=== PATIENT | male | born 1945 | race Caucasian/White ===

== ENCOUNTER 2017-10-07 18:41 | Observation (INO) | payer OTHER ==
[~2017-10-07] VITALS: Ht 180.3 cm; Wt 90.8 kg
[2017-10-07 18:48] VITALS: Ht 180.3 cm; Wt 90.8 kg
[2017-10-07 19:24] LABS: BASOPHIL % 0.2 % (0-2); PLATELET COUNT 251 x10^3mcL (130-400); RED CELL DISTRIBUTION WIDTH 13.4 % (11.5-14.5)
[2017-10-07 19:39] LABS: CALCIUM 9.7 mg/dL (8.5-10.1); CARBON DIOXIDE 31.2 mmol/L (21-32); CHLORIDE SERUM 104 mmol/L (98-107); CREATININE SERUM 1.7 mg/dL (0.7-1.3); GLUCOSE SERUM 120 mg/dL (74-106); POTASSIUM SERUM 3.3 mmol/L (3.5-5.1); SODIUM SERUM 139 mmol/L (136-145)
[2017-10-07 19:45] LABS: ALKALINE PHOSPHATASE 79 U/L (46-116); ALT/SGPT 36 U/L (16-63); AST/SGOT 31 U/L (15-37); BILIRUBIN TOTAL 0.89 mg/dL (0.20-1.00); LIPASE 188 IU/L (73-393); TRIGLYCERIDES 154 mg/dL (<150)
[2017-10-07 19:46] LABS: CHOLESTEROL 134 mg/dL (<200); CHOLESTEROL/HDL RATIO 2.2; HDL CHOLESTEROL 62 mg/dL (40-60)
[2017-10-07 19:53] LABS: T3 TOTAL 1.06 ng/mL
[2017-10-07 20:10] LABS: FREE T4 0.81 ng/dL (0.76-1.46); FREE THYROXINE INDEX 2.4 ug/dL (1.4-4.5); T4(THYROXINE) 7.5 ug/dL (4.7-13.3)
[2017-10-07] MEDS ORDERED: LOSARTAN POTAS100 M1 PO (20:25)
[2017-10-07] MEDS ORDERED: PROSCAR5 MG PO (20:25)
[2017-10-07] MEDS ORDERED: ATENOLOL50 MG PO (20:25)
[2017-10-07] MEDS ORDERED: LIPITOR40 MG PO (20:25)
[2017-10-07 21:21] VITALS: BP 137/72
[2017-10-08 02:23] LABS: microscopic required? NO
[2017-10-08 02:38] LABS: urine erythrocyte NEGATIVE (NEGATIVE)
[2017-10-08 05:32] VITALS: BP 149/81
[2017-10-08 06:21] LABS: CALCIUM 8.6 mg/dL (8.5-10.1); CARBON DIOXIDE 26.9 mmol/L (21-32); CHLORIDE SERUM 109 mmol/L (98-107); CREATININE SERUM 1.4 mg/dL (0.7-1.3); GLUCOSE SERUM 78 mg/dL (74-106); MAGNESIUM 2.2 mg/dL (1.8-2.4); POTASSIUM SERUM 3.9 mmol/L (3.5-5.1); SODIUM SERUM 144 mmol/L (136-145)
[2017-10-08 06:35] LABS: BASOPHIL % 0.4 % (0-2); PLATELET COUNT 204 x10^3mcL (130-400); RED CELL DISTRIBUTION WIDTH 13.6 % (11.5-14.5)
[2017-10-08 09:00] VITALS: BP 143/68
[2017-10-08] MEDS ORDERED: METOPROLOL TART25 M1 PO (10:10)
[2017-10-08 11:21] VITALS: BP 143/68
== END 2017-10-08 12:57 | disposition home or self-care (01) | DRG 310 ==
LOC: ED 18:41 → DU 20:25
PROVIDERS: Internal Medicine Pulmonary Disease; Specialist
DX: I48.91 Unspecified atrial fibrillation (principal); I10 Essential (primary) hypertension; E87.6 Hypokalemia; E78.5 Hyperlipidemia, unspecified; N40.0 Benign prostatic hyperplasia without lower urinary tract symptoms; E66.9 Obesity, unspecified; Z68.28 Body mass index [BMI] 28.0-28.9, adult; Z87.891 Personal history of nicotine dependence
CPT/HCPCS: 83880; 84439; G0378; J1644; J3490; J7030; Q0092

== ENCOUNTER 2018-04-15 00:05 | Inpatient (IN) | payer OTHER ==
[~2018-04-15] VITALS: Ht 177.8 cm; Wt 95.3 kg
[2018-04-15] VITALS (9 sets, daily range): BP systolic 114–174; BP diastolic 68–151
[~2018-04-15 00:05] MED LIST: ATENOLOL50 MG PO; LIPITOR40 MG PO; LOSARTAN POTAS100 M1 PO; METOPROLOL TART25 M1 PO; PROSCAR5 MG PO
--- NOTE | 2018-04-15 00:26 | NUR ---
CXR TAKEN AT BEDSIDE.
--- NOTE | 2018-04-15 00:28 | NUR ---
RT AT BEDSIDE TO OBTAIN ABG. PT INSTRUCTED TO PROVIDE URINE SPECIMEN VIA URINAL, PLACED AT BEDSIDE FOR CONVENIENCE.
[2018-04-15 00:36] LABS: PLATELET COUNT 338 x10^3mcL (130-400); RED CELL DISTRIBUTION WIDTH 14.4 % (11.5-14.5)
--- NOTE | 2018-04-15 00:43 | NUR ---
PT CAME TO THE ED TODAY WITH C/O SOB X 1 DAY. PT OXYGEN SATURATION ON 2L HOME O2 WAS 51%.
[2018-04-15 00:45] LABS: BAND NEUTROPHIL 0 % (0-10); MONOCYTE 5 % (0-7); SEGMENTED NEUTROPHILS 90 % (37-75)
[2018-04-15 00:46] LABS: rbc morphology (normal/abnorm) NORMAL (NORMAL)
[2018-04-15 00:51] LABS: CALCIUM 7.8 mg/dL (8.5-10.1); CARBON DIOXIDE 21.2 mmol/L (21-32); CHLORIDE SERUM 102 mmol/L (98-107); CREATININE SERUM 1.6 mg/dL (0.7-1.3); GLUCOSE SERUM 242 mg/dL (74-106); POTASSIUM SERUM 4.3 mmol/L (3.5-5.1); SODIUM SERUM 138 mmol/L (136-145)
[2018-04-15 00:56] LABS: ALKALINE PHOSPHATASE 97 U/L (46-116); ALT/SGPT 85 U/L (16-63); AST/SGOT 47 U/L (15-37); BILIRUBIN TOTAL 1.2 mg/dL (0.20-1.00); TOTAL PROTEIN, SERUM 6.5 g/dL (6.4-8.2)
[2018-04-15 01:00] LABS: ALBUMIN 2.7 g/dL (3.4-5.0)
[2018-04-15 01:08] LABS: CK-MB 1.7 ng/mL (0-3.6)
--- NOTE | 2018-04-15 02:57 | NUR ---
PATIENT IS A 72 YEAR OLD MALE ADMITTED DUE TO COMPLAIN OF SHORTHNESS OF BREATH FROM ER VIA [facility]. PATIENT IS AWAKE, ALERT, ORIENTED X4. PAKISTANI SPEAKING ONLY. TACHYPNEIC, ON NONREBREATHER MASK AT 15L, LATEST O2 SAT 91%. ABDOMEN ROUND/SOFT/NONTENDER, LBM 04/14/18. VOIDING FREELY WITHOUT DIFFICULTY. NO EDEMA. SKIN DRY AND INTACT. GENERALIZED WEAKNESS TO EXTREMITIES. USE WALKER/CANE AT HOME. NEEDS ASSIST WITH ADL'S. PER DAUGHTER HE KEEPS ON FALLING AT HOME. DENIES PAIN. IV SITE TO LEFT HAND PATENT AND INTACT WITH ONGOING 0.9% NS AT 150 CC/HR AND ZITHROMAX IV. ON TELE #8. WILL CONTINUE TO MONITOR.
--- NOTE | 2018-04-15 05:00 | NUR ---
PATIENT DESATURATING ON OXYMIZER AT 15L. O2 SAT 86-89%, RR 30-40'S. RT RECOMMENDS PLACING PATIENT ON HI FLOW O2.
--- NOTE | 2018-04-15 05:20 | NUR ---
DR PACHECO UPDATED ON PATIENTS CONDITION. RECEIVED ORDERS TO PLACED PATIENT ON HI FLOW O2 AND TRANSFER TO ICU. WILL CARRY OUT ORDERS.
--- NOTE | 2018-04-15 05:40 | NUR ---
PATIENT TRANSFERRED TO ICU VIA BED ON MONITOR AND O2. REPORT GIVEN TO HEBERT CONTINUOUS MINING MACHINE LODE MINER.
--- NOTE | 2018-04-15 05:45 | NUR ---
RECEIVED PATIENT FROM 252B TO ICU3 ACCOMPANIED BY 2 RNS WITH O2 VIA NASAL CANNULA, O2 SAT 78%, PATIENT IS ALERT AND ORIENTED, PASHTO SPEAKING WITH IV ACCESS ON THE LEFT HAND GAUGE 2O PATENT AND INTACT. IVF NS FIRST BOTTLE OF THE 150 ML/HR RATE IN FUSING. HR IN THE LOW 130'S SINUS TACH. PATIENT ORIENTED TO FLOOR, SAFETY MEASURES IMPLEMENTED. DR. MORAN AT BEDSIDE ASSESSING PATIENT. PATIENT IS COMFORTABLE, DENIES ANY DISCOMFORT.
--- NOTE | 2018-04-15 06:40 | NUR ---
DR. PACHECO INFORMED OF AFIB RATE IN THE HI 130'S, WITH ORDER TO GIVE CARDIZEM 10 MG IVP Q4 HOURS PRN. PATIENT'S O2 SAT IN THE HIGH 80'S RT TO TITRATE FIO2,
--- NOTE | 2018-04-15 07:15 | NUR ---
REPORT GIVEN TO THE NEXT SHIFT, PATIENT WAS GIVEN CARDIZEM 10 MG IVP AND FIO2 TITRATED TO 50 LITERS, SATURATION AT 88%. HR IS DOWN TO 105 FROM THE HIGH 130'S, AFTER CARDIZEM 10 MG.
--- NOTE | 2018-04-15 07:38 | NUR ---
CONVERTED TO NSR AT THIS TIME.
--- NOTE | 2018-04-15 07:40 | NUR ---
REVERTED TO AFIB
--- NOTE | 2018-04-15 07:45 | NUR ---
RECIEVED REPORT FROM HEBERT PUTNAM. PT IS NOT TRACH'D. PT AWAKE, ALERT, AND ORTIENTED TO PERSON/PLACE/TIME. ABLE TO FOLLOW COMMANDS AND RESPOND TO QUESTIONS. WOLOF SPEAKING BUT CAN COMPREHEND [place]. PT IS ON HIFLO O2 50%. PT IN NO SIGNS OF RESPIRATORY DISTRESS. PT'S BREATHING IS UNLABORED WITH SYMMETRICAL CHEST WALL EXPANSION. PT IS PINK IN COLOR AND WARM TO TOUCH. HEART RHYTHM = AFIB, HR = 118 BPM. S1 S2 HEART SOUNDS AUDIBLE. CAP REFILL <3 SECONDS TO BUE, <3 SECONDS TO BLE. PULSES ARE PALPABLE AND MODERATE IN INTENSITY TO BOTH BUE AND BLE. PERIPHERAL IV TO LEFT ARM, NS INFUSING AT 150 MLS/HR. ABDOMEN IS SOFT AND ROUNDED. NO F/C IN PLACE. SKIN INTACT. NO WOUNDS NOTED. PT'S VITALS: 118 BPM, 22 RR, 96% O2, 162/84 (109) BP. PT IS COOPERATIVE. SPOUSE AT BEDSIDE AT THIS TIME. FALL PRECAUTIONS IN PLACE. CALL LIGHT WITHIN REACH.
--- NOTE | 2018-04-15 09:39 | NUR ---
ECHO BEING DONE AT BEDSIDE.
--- NOTE | 2018-04-15 10:25 | NUR ---
PT O2 DESAT TO 65% AFTER ECHO. RT CONTACTED AND NOW AT BEDSIDE. CHANGED HIFLO TO 90%. O2 SATURATION NOW AT 90%. WILL CONTINUE TO MONITOR.
--- NOTE | 2018-04-15 12:14 | NUR ---
PT TRIED TO USE THE URINAL, O2 DESAT TO 60%. POSITIONED THE PT TO HOB >30 DEGREES. CALLED RT TO ASSESS AND IS NOW AT BEDSIDE. GIVEN BREATHING TREATMENT AT THIS TIME. PT O2 SAT IS NOW 93%, BREATHING BETTER, WITH NO DISTRESS NOTED. WILL CONTINUE TO MONITOR.
--- NOTE | 2018-04-15 14:04 | NUR ---
DR. HARVEY AT BEDSIDE. EXPLAINED POC WITH PT AND FAMILY AT BEDSIDE. WILL CARRY OUT 'S ORDERS ONCE PLACED.
--- NOTE | 2018-04-15 15:26 | NUR ---
CARDIZEM DRIP INITIATED @ 5 MG/HR. PT REMAINS IN AFIB AT THIS TIME, HR 127.
--- NOTE | 2018-04-15 15:45 | NUR ---
HR = 120. TITRATED CARDIZEM FROM 5 MG/HR TO 10 MG/HR. WILL CONTINUE TO MONITOR.
--- NOTE | 2018-04-15 16:27 | NUR ---
HR = 107. TITRATED CARDIZEM FROM 10 MG/HR TO 15 MG/HR. WILL CONTINUE TO MONITOR.
--- NOTE | 2018-04-15 19:30 | NUR ---
REC'D REPORT FROM RODRICK PUTNAM TO ASSUME CARE. PT IS A/O X4, SPEECH CLEAR AND APPROPRIATE. PERRLA NOTED. NO ACUTE DISTRESS NOTED. NO SOB NOTED RESPS E/U ON HI-FLOW FIO2 86%. CHEST RISE EQUAL AND SYMMETRICAL. LUNG SOUNDS COARSE CRACKLES/WHEEZES BERNARD. TELE RN IN PLACE SHOWING AFIB WITH HR 86. CARDIZEM GTT INFUSING @ 15 MG/HR. ABD SOFT, ROUNDED, NON-TENDER TO TOUCH. DENIES ANY N/V/D. VOIDS FREELY WITH URINAL. DENIES ANY URINARY SYMPTOMS. SKIN WARM DRY TO TOUCH. IV TO LEFT HAND G 20 INTACT AND PATENT. NS INFUSING @ 40ML/HR. PULSES PALPABLE X4. NO EDEMA NOTED. CAP REFILL < 3 SECS. GEN WEAKNESS NOTED. ABLE TO MOVE ALL EXT. INSTRUCTED TO CALL FOR ANY ASSISTANCE. CALL LIGHT WITHIN REACH. WILL CONT TO MONITOR.
--- NOTE | 2018-04-15 20:03 | NUR ---
RT PAZ AT BEDSIDE PROVIDING BREATHING TX.
--- NOTE | 2018-04-15 20:42 | NUR ---
TITRATED FIO2 VIA HI-FLOW HUMIDIFIER TO 80%. SPO2 97%. RN NOTIFIED. NO RESPIRATORY DISTRESS AT THIS TIME. WILL MONITOR.
--- NOTE | 2018-04-15 20:43 | NUR ---
RT BRANDI TITRATED FIO2 TO 80%.
--- NOTE | 2018-04-15 22:18 | NUR ---
CALLED AND SPOKE TO DR MORAN, UPDATED ON PTS STATUS, MADE AWARE REGARDING PT WITH NO AM LABS ORDERED. TELEPHONE ORDER GIVEN FOR CBC, CMP, BNP, AND CXRAY IN AM. TELEPHONE ORDER READ BACK. ORDER NOTED AND CARRIED OUT.
--- NOTE | 2018-04-15 23:24 | NUR ---
PT SLEEPING BUT EASILY AROUSABLE. ASSISTED TO REPOSITION IN BED. PTS URINAL EMPTIED, 200ML YELLOW COLORED URINE NOTED.
--- NOTE | 2018-04-16 01:30 | NUR ---
HR REMAINS BETWEEN 70-80, CARDIZEM GTT TITRATED DOWN TO 10MG/HR.
--- NOTE | 2018-04-16 02:18 | NUR ---
PT FOUND STANDING AT SIDE OF BED WITH IV, NURSING AGENCY MANAGER, PULSE OX, BP CUFF, GOWN, AND HI-FLOW REMOVED; PT DESATTED TO 56%, RESPS LABORED. INSTRUCTED TO TAKE DEEP BREATHS. HI-FLOW PLACED, O2 SAT WENT UP 96%. PT STATES "I NEED TO GO TO BATHROOM." PT ASSISTED BACK TO BED AND ASSISTED TO USE URINAL, EMPTIED 300ML. REMOVED LEFT HAND IV CATHETER INTACT, GAUZE APPLIED, BLEEDING CONTROLLED. IV INSERTED TO RIGHT HAND G 20, GOOD BLOOD RETURN NOTED. FLUSHED WITH 10CC NS WITHOUT ANY INFILTRATION NOTED. PT INSTRUCTED TO CALL FOR ANY ASSISTANCE AND NOT TO GET OUT OF BED, VERBALIZED UNDERSTANDING. PTS CURTAIN OPEN WITH ROOM CLOSE TO NURSING STATION FOR CLOSE MONITORING. CALL LIGHT WITHIN REACH.
[2018-04-16 03:01] VITALS: BP 111/63
--- NOTE | 2018-04-16 04:59 | NUR ---
CARDIZEM GTT TITRATED TO 5 MG/HR, HR 76.
[2018-04-16 05:04] LABS: PLATELET COUNT 285 x10^3mcL (130-400); RED CELL DISTRIBUTION WIDTH 14.2 % (11.5-14.5)
[2018-04-16 05:19] LABS: ALBUMIN 2.4 g/dL (3.4-5.0); ALKALINE PHOSPHATASE 76 U/L (46-116); ALT/SGPT 73 U/L (16-63); AST/SGOT 42 U/L (15-37); BILIRUBIN TOTAL 0.97 mg/dL (0.20-1.00); CARBON DIOXIDE 23.6 mmol/L (21-32); CHLORIDE SERUM 107 mmol/L (98-107); CREATININE SERUM 1.3 mg/dL (0.7-1.3); GLUCOSE SERUM 155 mg/dL (74-106); POTASSIUM SERUM 4.2 mmol/L (3.5-5.1); SODIUM SERUM 140 mmol/L (136-145); TOTAL PROTEIN, SERUM 5.8 g/dL (6.4-8.2)
[2018-04-16 05:22] LABS: BAND NEUTROPHIL 1 % (0-10); METAMYELOCTE 1 % (0-2); MONOCYTE 3 % (0-7); SEGMENTED NEUTROPHILS 90 % (37-75)
[2018-04-16 05:27] LABS: acanthocyte (spur cell) 1+; rbc morphology (normal/abnorm) ABNORMAL (NORMAL)
[2018-04-16 05:28] LABS: PLATELET MORPHOLOGY PLATELETS NORMAL
--- NOTE | 2018-04-16 07:05 | NUR ---
REPORT GIVEN TO SATISH PUTNAM TO ASSUME CARE.
[2018-04-16 07:45] VITALS: BP 115/85
--- NOTE | 2018-04-16 07:45 | NUR ---
THE PATIENT AWAKE AND ORIENTED TO PERSON, PLACE AND . THE PATIENT DENIED SHORTNESS OF BREATH, NAUSEA/VOMITING OR PAIN AT THIS TIME. TELE # 3 READS AFIB. THE PATIENT WAS ON HIGH FLOW AT 50LPM AND 80% FIO2. CARDIZEM DRIP AT 5MG/HR. AND IVF NS AT 40CC/HR VIA H/L RIGHT HAND. CALL LIGHT WITHIN REACH. SIDE RAILS UP X3. BED WAS AT LOWEST POSITION. THE WAS AT BEDSIDE.
--- NOTE | 2018-04-16 08:00 | NUR ---
DR. MORAN WAS AT BEDSIDE SEEING THE PATIENT AND DISCUSSING THE CARE PLAN WITH THE PATIENT AND HIS .
--- NOTE | 2018-04-16 08:05 | NUR ---
DR MORAN AT BEDSIDE TO ASSESS PATIENT. POC DISCUSSED BEDSIDE INCLUDING CODE STATUS. DR MORAN DISCUSSED IN DETAIL THE POSSIBILTY OF INTUBATION WITH ALL QUESTIONS AND CONCERNS ADDRESSED.
--- NOTE | 2018-04-16 09:02 | NUR ---
HR 117, CARDIZEM DRIP WAS TITRATED FROM 5MG/HR TO 10MG/HR.
--- NOTE | 2018-04-16 09:46 | NUR ---
DR. HARVEY CAME TO BEDSIDE TO SEE THE PAIENT AND TALKED TO THE PATIENT AND HIS .
[2018-04-16 10:37] LABS: microscopic required? NO
[2018-04-16 11:03] VITALS: BP 138/77
[2018-04-16 11:24] LABS: UA SPECIFIC GRAVITY 1.025 (1.005-1.035); urine erythrocyte NEGATIVE (NEGATIVE)
--- NOTE | 2018-04-16 13:07 | NUR ---
DR. MORAN WAS PAGED AND CALLED BACK: DOCTOR WAS NOTIFIED OF THE CXR RESULT THIS MORNING AND PATIENT C/O ANXIETY. NEW ORDER RECEIVED VIA TELEPHONE AND REPEATED. WILL CARRY OUT THE ORDER.
--- NOTE | 2018-04-16 14:40 | NUR ---
THE PATIENT HAD EPISODES OF HR IN 90S AND 100S; CARDIZEM DRIP WAS TITRTED FROM 10MG/HR DOWN TO 7.5 MG/HR.
[2018-04-16 15:23] VITALS: BP 125/68
--- NOTE | 2018-04-16 15:35 | NUR ---
THE PATIENT HEART RATES BETWEEN 80S AND 90S; CARDIZEM DRIP WAS TITRATED FROM 7.5 MG/HR DOWN TO 5MG/HR.
--- NOTE | 2018-04-16 19:02 | NUR ---
THE PATIENT TOLERATED WELL WITH CCHO DIET TODAY. THE PATIENT HAD EPISODES OF DRY COUGH AND FAST BREATHING WITH RR> 20. THE PATIENT REMAINED ON HIGH FLOW AT 50LPM AND 80% FIO2. CARDIZEM DRIP MAINTAINED AT 5MG/HR.
--- NOTE | 2018-04-16 19:04 | NUR ---
REPORT WAS GIVEN TO ROSSY MCFARLANE RN. ALL CONCERNS WERE ADDRESSED.
--- NOTE | 2018-04-16 19:15 | NUR ---
REPORT RECEIVED FROM JERSEY COVARRUBIAS. RESUMED CARE OF PT. PT A&O X3. FOLLOWS COMMANDS, RESPONDS TO TACTILE STIMULUS. HIGH FLOW 85% FIO2 @ 50LPM. O2 SATS 93%. PT DENIES SOB. BREATHING E/U. R HAND IV INFUSING W/ CARDIZEM & NS. ABD ROUND/NONTENDER. PT ABLE TO ASSIST W/ RESPOSITIONING AND VOIDS FREELY TO BEDSIDE URINAL. SKIN WARM & INTACT.
--- NOTE | 2018-04-16 19:39 | NUR ---
TITRATED CARDEZIM DRIP FROM 5MG/HR TO 4MG/HR TO PER PROTOCOL. PT TOLERATED WELL. VS STABLE. BP WNL. WILL CONT TO MONITOR.
[2018-04-16 19:58] VITALS: BP 114/79
--- NOTE | 2018-04-16 21:07 | NUR ---
TITRATED CARDIZEM FROM 4MG/HR TO 2.5MG/HR PER PROTOCOL. PT TOLERATED WELL. VS STABLE. BP WNL. WILL CONT TO MONITOR.
--- NOTE | 2018-04-17 00:03 | NUR ---
Pt REFUSES HHN TX AT THIS TIME. SPO2 99%, RR 20, NO RESP DISTRESS NOTED, Pt SLEEPING COMFORTABLY. WILL CONTINUE TO MONITOR.
[2018-04-17 00:09] VITALS: BP 119/74
--- NOTE | 2018-04-17 01:23 | NUR ---
DR PERES @ BEDSIDE. NURSING UPDATES. DISCUSSED POC. NO NEW ORDERS @ THIS TIME.
--- NOTE | 2018-04-17 02:26 | NUR ---
TITRATED CARDIZEM FROM 2.5MG/HR TO 2MG/HR PER PROTOCOL. PT TOLERATED WELL. VS WNL. BP WNL. WILL CONT TO MONITOR.
[2018-04-17 03:33] VITALS: BP 113/75
--- NOTE | 2018-04-17 04:04 | NUR ---
HHN TX REFUSED AT THIS TIME. Pt WAS COMFORTABLY SLEEPING AND STATES HIS BREATHING IS GOOD. SPO2 100%. NO RESP DISTRESS NOTED AT THIS TIME. WILL CONTINUE TO MONITOR.
--- NOTE | 2018-04-17 04:38 | NUR ---
MANUAL PLATE FILLER @ BEDSIDE FOR AM LABS.
[2018-04-17 04:58] LABS: PLATELET COUNT 257 x10^3mcL (130-400); RED CELL DISTRIBUTION WIDTH 14.4 % (11.5-14.5)
[2018-04-17 05:14] LABS: BAND NEUTROPHIL 4 % (0-10); MONOCYTE 5 % (0-7); SEGMENTED NEUTROPHILS 86 % (37-75)
[2018-04-17 05:15] LABS: METAMYELOCTE 1 % (0-2)
[2018-04-17 05:19] LABS: acanthocyte (spur cell) 1+; rbc morphology (normal/abnorm) ABNORMAL (NORMAL)
--- NOTE | 2018-04-17 05:26 | NUR ---
STRUCTURAL RIGGER @ BEDSIDE.
--- NOTE | 2018-04-17 05:28 | NUR ---
TITRATED CARDIZEM FROM 2MG/HR TO 2.5MG/HR. SYSTOLIC MAINTIANING 130'S-140'S AND MAP 95-105. PT TOLERATED WELL BP SYSTOLICS 130'S W/ MAPS 90. WILL CONT TO MONITOR.
[2018-04-17 05:37] LABS: ALKALINE PHOSPHATASE 74 U/L (46-116); ALT/SGPT 62 U/L (16-63); AST/SGOT 42 U/L (15-37); BILIRUBIN DIRECT 0.21 mg/dL (0.0-0.2); BILIRUBIN TOTAL 0.82 mg/dL (0.20-1.00); CALCIUM 8.3 mg/dL (8.5-10.1); CARBON DIOXIDE 25.7 mmol/L (21-32); CHLORIDE SERUM 108 mmol/L (98-107); CREATININE SERUM 1.3 mg/dL (0.7-1.3); GLUCOSE SERUM 137 mg/dL (74-106); POTASSIUM SERUM 4.5 mmol/L (3.5-5.1); SODIUM SERUM 141 mmol/L (136-145)
[2018-04-17 05:38] LABS: ALBUMIN 2.3 g/dL (3.4-5.0); TOTAL PROTEIN, SERUM 5.8 g/dL (6.4-8.2)
--- NOTE | 2018-04-17 05:45 | NUR ---
TITRATED CARDIZEM FROM 2.5MG/HR TO OFF PER PROCOTOL. PT W/ PO BP MEDS. PT TOLERATED WELL. VS WNL. BP SYSTOLICS 120'S MAP 90'S. WILL CONT TO MONITOR.
--- NOTE | 2018-04-17 07:10 | NUR ---
REPORT GIVEN TO ONCOMING NURSE RN MIN. ALL CONCERNS ADDRESSED.
[2018-04-17 07:17] VITALS: BP 121/81
--- NOTE | 2018-04-17 07:17 | NUR ---
PT IS AAOX4 ABLE TO FOLLOW VERBAL COMMAND AND VERBALIZE NEEDS. FOUND PT ON 90%FIO2 ON HIGH FLOW AT 55L VIA NASAL CANNULA. FOUND CARDIZUM DRIPP OF AND NS AT 40ML/HR TO RHAND. NO SIGHS OF SWELLING OR REDNESS TO IV SITE. PT DENIES SOB. BED AT LOW AND CALL LIGHT WITHIN REACH.
--- NOTE | 2018-04-17 08:07 | NUR ---
EMILY RT AT BEDSIDE IMPLEMENTING BREATHING TX, PT TOLERATING WELL.
--- NOTE | 2018-04-17 11:09 | NUR ---
CAORSE CRACKLES TO BL LUNG FIELS WITH MIMIAL WHEEZING, RT NOTIFIED FOR BREATHING TX. SOB NOTED.
[2018-04-17 11:14] VITALS: BP 146/92
--- NOTE | 2018-04-17 11:17 | NUR ---
EMILY RT IN ROOM IMPLEMENTING BREATHING TX.
--- NOTE | 2018-04-17 11:54 | NUR ---
PT'S HR TRENDING UP TO 122, CARDIZUM DRIP AT 5MG/HR TO ACHIEVE HR BELOW 100 PER PROTOCOL.
--- NOTE | 2018-04-17 12:00 | NUR ---
PT URINATED 280ML OF STRAW COLOR URINE IN URINAL.
--- NOTE | 2018-04-17 12:45 | NUR ---
DR ADKINS AT BEDSIDE TO ASSESS PATIENT. UPDATES AND POC DISCUSSED WITH PATIENT AND SON. DR ADKINS ALSO DISCUSSED INTUBATION IF PATIENT DOES NOT SUCCESSFULLY WEAN FROM HI-FLOW AT 80% FIO2. PER PATIENT'S SON, FAMILY IS CONTINUING TO DISCUSS WHETHER INTUBATIION WOULD BE APPROPRIATE CONSIDERING PATIENT'S PULMONARY CONDITION. FAMILY WILL ADVISE NURSING.
--- NOTE | 2018-04-17 13:00 | NUR ---
PT URINATED 200ML OF STRAW COLOR IN URINAL.
--- NOTE | 2018-04-17 13:04 | NUR ---
EMILY RT SWITCH PT'S HIGH FLOW MACHINE TO VAPOTHERM FOR MORE ACURATE SETTINGS FOR FIO2 AND FLOW. HIGH FLOW SET AT 80%FIO2 FLOW RATE AT 25L PER PT'S TOLERATION. PT PO2SAT AT 92%. PT TOLERATING WELL.
--- NOTE | 2018-04-17 13:58 | NUR ---
HR TRENDING 98 LOWERED CARIDZIUM TO 2.5MG/HR TO TITRATE OFF.
--- NOTE | 2018-04-17 15:00 | NUR ---
PT URINATED AT 325ML OF STRAW COLOR IN URINAL.
--- NOTE | 2018-04-17 15:43 | NUR ---
PROVIDED UPDATES OF PT STATUS TO DR. YUAN, RECIEVED NO NEW ORDERS.
[2018-04-17 15:48] VITALS: BP 135/78
--- NOTE | 2018-04-17 16:00 | NUR ---
DIMINISH LUNG SOUNDS WITH RR TRENDING MID 20'S TO 18. EVEN CHEST RISE. HIGH FLOW AT 80%FIO2 AT 25L. EMILY DICKENS AT BEDSIDE IMPLEMTNING BREATHING TX.
--- NOTE | 2018-04-17 17:47 | NUR ---
PT URINATED IN URINAL, 350 STRAW COLOR OUPUT.
--- NOTE | 2018-04-17 19:15 | NUR ---
RECIEVED REPORT FROM RN MIN. RESUMED CARE OF PT. PT A&OX3. FOLLOWS COMMANDS & VERBALIZES NEEDS. PERRL. HI FLOW VAPETHERMA SECURE & INTACT TO BOTH NARES W/ MOIST MUCOUSA. BREATHING E/U. LUNG SOUNDS FINE/COARSE CRACKLES BLL. AFIB HEART RHYTHM. ABD SOFT & ROUND. CCHO DIET. VOIDING TO BEDSIDE URINAL. GENERALIZED WEAKNESS. SKIN INTACT R HAND IV C/D/I INFUSING W/ NS & CARDIZEM. FAMILY @ BEDSIDE.
--- NOTE | 2018-04-17 19:20 | NUR ---
TITRATED CARDIZEM FROM 2.5MG/HR TO 1.5MG/HR PER PROTOCOL. HR HIGH 90'S LOW 100'S. VS STABLE. PT TOLERATING WELL. WILL CONT TO MONITOR.
[2018-04-17 19:24] VITALS: BP 127/90
--- NOTE | 2018-04-17 20:00 | NUR ---
PT URINATED 200ML STRAW COLOR. NO SEDIMENT.
--- NOTE | 2018-04-17 20:32 | NUR ---
RT PAZ @ BEDSIDE FOR BREATHING TX.
--- NOTE | 2018-04-17 21:26 | NUR ---
DR VANEGAS @ BEDSIDE. NURSING UPDATES. DISCUSSED POC. NO NEW ORDERS @ THIS TIME.
--- NOTE | 2018-04-17 22:00 | NUR ---
TITRATED CARDIZEM FROM 1.5MG/HR TO OFF PER PROTOCOL. PT TOLERATED WELL. WILL CONT TO MONITOR.
--- NOTE | 2018-04-17 22:30 | NUR ---
PT URINATED 600ML CLEAR YELLOW. NO SEDIMENT NOTED.
[2018-04-18] VITALS (8 sets, daily range): BP systolic 132–152; BP diastolic 47–99
--- NOTE | 2018-04-18 | NUR ---
RT PAZ @ BEDSIDE FOR BREATHING TX.
--- NOTE | 2018-04-18 01:00 | NUR ---
PT URINATED 400 ML CLEAR YELLOW. NO SEDIMENT NOTED.
--- NOTE | 2018-04-18 03:41 | NUR ---
RT PAZ @ BEDSIDE FOR BREATHING TX. DISCUSSED POC. HIFLOW LPM INCREASED FROM 25LPM TO 30LPM PER NONCOMPLIANCE AND LOW O2 SATS IN HIGH 80'S LOW 90'S. WILL CONT TO MONITOR.
--- NOTE | 2018-04-18 04:45 | NUR ---
PRODUCE SERVICE TEAM MEMBER @ BEDSIDE FOR AM BLOOD DRAW.
[2018-04-18 04:55] LABS: PLATELET COUNT 266 x10^3mcL (130-400); RED CELL DISTRIBUTION WIDTH 14.1 % (11.5-14.5)
[2018-04-18 04:56] LABS: CALCIUM 7.9 mg/dL (8.5-10.1); CARBON DIOXIDE 28.3 mmol/L (21-32); CHLORIDE SERUM 107 mmol/L (98-107); CREATININE SERUM 1.3 mg/dL (0.7-1.3); GLUCOSE SERUM 150 mg/dL (74-106); MAGNESIUM 2.4 mg/dL (1.8-2.4); POTASSIUM SERUM 3.9 mmol/L (3.5-5.1); SODIUM SERUM 142 mmol/L (136-145)
[2018-04-18 05:24] LABS: BAND NEUTROPHIL 1 % (0-10); METAMYELOCTE 1 % (0-2); MONOCYTE 7 % (0-7); SEGMENTED NEUTROPHILS 89 % (37-75)
[2018-04-18 05:26] LABS: PLATELET MORPHOLOGY PLATELETS NORMAL; rbc morphology (normal/abnorm) NORMAL (NORMAL)
--- NOTE | 2018-04-18 05:38 | NUR ---
ACTIMIZE ARCHITECT @ BEDSIDE FOR CHEST XRAY.
--- NOTE | 2018-04-18 12:20 | NUR ---
PATIENT SPILLED URINE ON BED SHEETS. CARYN RN AT BEDSIDE TO CHANGE PATIENT'S LINEN AND GOWN. PATIENT BEGAN TO DESAT INTO LOW 80'S/HIGH 70'S SUSTAINED. PATIENT PLACED IN UPRIGHT POSITION AND FIO2 ON HI-FLOW TITRATED TO 100%. SPO2 INCREASED TO 90% HOWEVER PATIENT REMAINS WITH LABORED BREATHING. EMILY DICKENS MADE AWARE OF CHANGES. WILL CONTACT DR ADKINS.
--- NOTE | 2018-04-18 12:45 | NUR ---
DR ADKINS AT BEDSIDE TO ASSESS PATIENT. UPDATES PROVIDED BY NURSING. DR ADKINS TELEPHONED PATIENT'S DAUGHTER HARRIET AND DISCUSSED PATIENT'S CURRENT CONDITION AND CODE STATUS. DR ADKINS ALSO EXPLAINED IN DETAIL PATIENT'S EXTREMELY POOR PROGNOSIS, ASKED WHAT THE WISHES OF THE FAMILY WERE REGARDING INTUBATION AND PROVIDED INFORMATION REGARDING PALLIATIVE CARE PATIENT'S RESPIRATORY STATUS IS CONTINUING TO DECLINE. HARRIET STATED THAT SHE WILL TELEPHONE HER BROTHER AND THEY WILL COME TO THE HOSPITAL AND DISCUSS WITH PATIENT AND THEIR MOTHER BEDSIDE ALL OPTIONS AVAILABLE AND NOTIFY NURSING WITH THEIR DECISION TODAY.
--- NOTE | 2018-04-18 13:38 | NUR ---
PATIENT'S DAUGHTER HARRIET ON UNIT TO VISIT WITH PATIENT.
--- NOTE | 2018-04-18 14:48 | NUR ---
PATIENT'S FAMILY REQUESTING BREAKER MECHANIC TO COME BEDSIDE. TELEPHONED [facility]. NO ANSWER...LEFT MESSAGE.
--- NOTE | 2018-04-18 14:55 | NUR ---
DR YUAN AT BEDSIDE TO ASSESS PATIENT. UPDATES PROVIDED BY NURSING. NEW ORDERS RECEIVED.
--- NOTE | 2018-04-18 15:33 | NUR ---
LENNIE RN, MARIELA MT, PT, , SON, AND DAUGHTER DISCUSSED CODE STATUS AT BEDSIDE. PT CONFIRMS THAT HE DOES NOT WANT CPR OR INTUBATION. PT ALSO CONFIRMS THAT IN THE CASE HE DEVELOPS SIGNIFICANT RESPIRATORY DIFFICULTY, HE WOULD LIKE THE FOCUS TO BE ON COMFORT RATHER THAN LIFE SAVING MEASURES. PT ACKNOWLEDGES THAT HE MAY NOT SURVIVE WITHOUT MENTIONED LIFE SAVING MEASURES. PRESENT FAMILY MEMBERS ACKNOWLEDGES AND VERBALIZES UNDERSTANDING, AGREES WITH PT WISHES.
--- NOTE | 2018-04-18 16:02 | NUR ---
DR ADKINS SPOKE WITH PATIENT'S DAUGHTER HARRIET VIA TELEPHONE. CODE STATUS AND POC DISCUSSED. PER PATIENT'S WISHES, CODE STATUS NOW TO DNR/DNI.
--- NOTE | 2018-04-18 19:11 | NUR ---
RECEIVED REPORT FROM CARYN PUTNAM. WILL CONTINE CARE AND TREATMENT PLAN.
--- NOTE | 2018-04-18 20:03 | NUR ---
EMILY RT AT BEDSIDE GIVING BREATHING TREAMENT TO PT.
--- NOTE | 2018-04-18 20:41 | NUR ---
PROPOFOL INCREASED FROM 25MCG/KG/MIN TO 30MCG/KG/MIN TO ACHIEVE RSS 4.
--- NOTE | 2018-04-18 23:30 | NUR ---
PT URINATED 380CC OF URINE IN URINAL. NO SEDIMENT NOTED.
--- NOTE | 2018-04-19 02:05 | NUR ---
PT ASSISTED IN TURNING AND REPOSITIONING TO SUPINE POSITION. BONY PROMINENCES OFF LOADED. HOB ELEVATED. BED IN LOW POSITION. CALL LIGHT WITHIN REACH.
[2018-04-19 03:31] VITALS: BP 128/88
--- NOTE | 2018-04-19 03:48 | NUR ---
EMILY DICKENS AT PT'S BEDSIDE GIVING BREATHING TREATMENT. PT TOLERATING WELL.
--- NOTE | 2018-04-19 06:58 | NUR ---
PT LINENS AND GOWN CHANGED. PT GIVEN BED BATH. IV FLUIDS RUNNING WITH NS AT 40ML/HR. NO S/SX OF PAIN OR DISCOMFORT NOTED. NO SOB OR RESPIRATORY DISTRESS NOTED. ALL NEEDS MET AND ANTICIPATED. BED IN LOW POSITION. CALL LIGHT WITHIN REACH. WILL GIVE REPORT TO ONCOMING RN.
--- NOTE | 2018-04-19 07:15 | NUR ---
RECIEVED REPORT FROM RADHA PUTNAM, WILL RESUME CARE.
[2018-04-19 07:38] VITALS: Ht 177.8 cm; Wt 95.3 kg
[2018-04-19 07:45] VITALS: BP 130/60
--- NOTE | 2018-04-19 07:45 | NUR ---
RECIEVED REPORT FROM NAKITA PUTNAM. FOUND PT AWAKE, ALERT, AND RESPONSIVE TO VERBAL, TACTILE, AND PAINFUL STIMULI. ABLE TO FOLLOW COMMANDS WITH NO RESTRCITIONS. PT ON HIFLO: 75% FIO2, 30 LPM. NO RESPIRATORY DISTRESS NOTED. CHEST WALL EXPANSION IS SYMMETRICAL. PT IN AFIB, HR IS 99. PT DENIES CHEST PAIN. CARDIZEM IS OFF AND NOT RUNNING. PULSES ARE MODERATE TO BUE AND BLE. SKIN IS WARM AND DRY, PINK IN COLOR. +1 EDEMA NOTED TO BUE AND BLE. RIGHT PERIPHERAL IV NOTED TO RIGHT HAND. NS INFUSING AT 40 MLS/HR. PT IS AMBULATORY BUT WITH ASSISTANCE. GENERALIZED WEAKNESS IS NOTED. ABD IS SOFT AND ROUNDED. URINE IS YELLOW AND IS VOIDING FREELY. URINAL AT BEDSIDE. 200CC OF URINE COLLECTED. SKIN IS INTACT. NO WOUNDS NOTED. SPOUSE AND SON AT BEDSIDE. FALL PRECAUTIONS IN PLACE - BED IN LOWEST POSITION, CALL LIGHT WITHIN REACH, 3 SIDE RAILS UP. NO RESTRAINTS NOTED. WILL ENDORSE CARE.
--- NOTE | 2018-04-19 08:29 | NUR ---
CHEYENNE RT AT BEDSIDE PROVIDING BREATHING TX. PT TOLERATING WELL.
[2018-04-19 11:00] VITALS: BP 127/73
--- NOTE | 2018-04-19 11:00 | NUR ---
TURNED AND REPOSITIONED PT. NO SIGNS OF DISTRESS NOTED.
--- NOTE | 2018-04-19 11:21 | NUR ---
PER SPOUSE'S REQUEST, PERSONNEL GENERALIST MANAGER AT BEDSIDE AND PRAYING FOR PT.
--- NOTE | 2018-04-19 12:01 | NUR ---
DR. YUAN AT BEDSIDE ASSESSING PT.
--- NOTE | 2018-04-19 12:04 | NUR ---
NEPHROLOGISGT AT BEDSIDE. NO ORDERS ARE GIVEN AT THIS TIME. WILL CONTINUE TO MONITOR.
--- NOTE | 2018-04-19 13:10 | NUR ---
CHEYENNE RT AT BEDSIDE GIVING BREATHING TREATMENT. PT TOLERATING WELL. NO SIGNS OF DISTRESS NOTED.
--- NOTE | 2018-04-19 14:03 | NUR ---
DR. ADKINS AT BEDSIDE. TALKED TO PT'S FAMILY ABOUT HOSPICE CARE, MOSTLY [facility]. POSSIBLE FANI EVALUATION. DR. ADKINS SAID TO CONTINUE ALL MEDICAL CARE/PROTOCOLS UNTIL THEN. LABS SAID TO BE ORDERED EVERY OTHER DAY. WILL FOLLOW ORDERS AND CONTINUE TO MONITOR.
--- NOTE | 2018-04-19 14:28 | NUR ---
ASSISTED PT TO BEDSIDE COMMODE. FORMED BM NOTED.
[2018-04-19 16:27] VITALS: BP 144/67
--- NOTE | 2018-04-19 17:05 | NUR ---
CHEYENNE RT AT BEDSIDE GIVING BREATHING TREATMENT. PT TOLERATING WELL, NO SIGNS OF DISTRESS. WILL CONTINUE TO MONITOR.
--- NOTE | 2018-04-19 17:58 | NUR ---
PT GIVEN HCG WIPE DOWN. CAROLINE-CARE COMPLETED. MIN RN BROUGHT BED DOWN FROM TELE. PT READY FOR TRANSFER BY [id number]. WILL CONTINUE TO MONITOR UNTIL THEN.
--- NOTE | 2018-04-19 18:37 | NUR ---
PT IS READY TO TRANSFER. GIVEN REPORT TO LUDA PUTNAM IN TELEMETRY. GOING WITH TELE BOX #21. WILL TRANSFER WITH [facility]LO ON 75% FIO2 AND 30 LPM. CHEYENNE DICKENS WILL BE ASSISTING BY BED. PT HAS ALL PERSONAL BELONGINGS. PT WILL BE GOING TO BED 260-B.
--- NOTE | 2018-04-19 20:00 | NUR ---
RECEIVED PT RESTING IN BED. PT IS AWAKE, ALERT, ORIENTED X4. SPEECH CLEAR. ABLE TO MAKE NEEDS KNOWN. DENIES PAIN OR DISCOMFORT. PT ON HIGH FLOW O2 AT 30LPM AT FIO2 OF 75%. TOLERATING WELL. TELE 21 SHOWS AFIB WITH PVC'S. DENIES CHEST PAIN. BS ACTIVE IN ALL FOUR QUADS. ABD IS OBESE. NON DISTENDED. VOIDING WITH URINAL AT BEDSIDE. IVF INFUSING TO RIGHT HAND NS AT 40ML/HR. SHIFT ASSESSMENT COMPLETED. CALL LIGHT WITHIN REACH. BED IS IN LOWEST POSITION. WILL CONTINUE TO MONITOR CLOSELY.
[2018-04-19 21:48] VITALS: BP 123/63
--- NOTE | 2018-04-20 02:30 | NUR ---
PT SLEEPING IN INTERVALS. REMAINS AT BEDSIDE. IVF ONGOING WITH NS AT 40ML/HR. CALL LIGHT WITHIN REACH. BED IS IN LOWEST POSITION. WILL CONTINUE TO MONITOR CLOSELY.
--- NOTE | 2018-04-20 06:20 | NUR ---
FSBS IS 121. ALL DUE MEDS GIVEN ORDERED. AT BEDSIDE. PT SLEPT ON AND OFF THROUGH OUT THE NIGHT. WILL CONTINUE TO MONITOR CLOSELY.
[2018-04-20 06:40] LABS: PLATELET COUNT 276 x10^3mcL (130-400); RED CELL DISTRIBUTION WIDTH 14.2 % (11.5-14.5)
[2018-04-20 06:46] VITALS: BP 131/84
[2018-04-20 07:07] LABS: CALCIUM 8.5 mg/dL (8.5-10.1); CHLORIDE SERUM 106 mmol/L (98-107); CREATININE SERUM 1.1 mg/dL (0.7-1.3); GLUCOSE SERUM 133 mg/dL (74-106); MAGNESIUM 2.5 mg/dL (1.8-2.4); POTASSIUM SERUM 3.8 mmol/L (3.5-5.1); SODIUM SERUM 144 mmol/L (136-145)
--- NOTE | 2018-04-20 07:20 | NUR ---
RECEIVED PATIENT FROM TELEVISION [employer] DIRECTOR NURSE. PATIENT IS AWAKE, ALERT AND ORIENTED. TELE#21, A-FIB WITH PVC'S, HR 106. DENIES CHEST PAIN AND PALPITATIONS. PATIENT IS ON ELIQUIS PO, NO SIGNS OF BLEEDING. BLEEDING PREC IN PLACE. PATIENT IS ON HIGH FLOW O2 AT 30LPM, FIO2 75%, BREATHING APPEARS EVEN AND UNLABORED. PATIENT DENIES SOB. IV NOTED TO RIGHT HABD, IVF INFUSING WELL ORDERED, NO S/S REDNESS OR EDEMA AT SITE. CALL LIGHT WITHIN EASY REACH. WILL CONTINUE PLAN OF CARE.
[2018-04-20 09:24] VITALS: BP 129/73
[2018-04-20 11:12] LABS: BAND NEUTROPHIL 0 % (0-10); BASOPHIL 0 % (0-2); MONOCYTE 5 % (0-7); SEGMENTED NEUTROPHILS 94 % (37-75); rbc morphology (normal/abnorm) ABNORMAL (NORMAL)
[2018-04-20 11:13] LABS: PLATELET MORPHOLOGY PLATELETS NORMAL
[2018-04-20 12:40] VITALS: BP 136/85
[2018-04-20] MEDS ORDERED: DIG125 PO (12:57)
[2018-04-20] MEDS ORDERED: ATRUD HHN (12:57)
[2018-04-20] MEDS ORDERED: XOP1.25 HHN (12:57)
[2018-04-20] MEDS ORDERED: ELIQUIS2.5 MG PO (12:57)
[2018-04-20] MEDS ORDERED: MOR2I IV (12:58)
[2018-04-20] MEDS ORDERED: CAR60 PO (12:58)
[2018-04-20] MEDS ORDERED: METOPROLOL TART25 M1 PO (12:58)
[2018-04-20] MEDS ORDERED: COZ50 PO (12:58)
[2018-04-20] MEDS ORDERED: ROC1I IV (12:58)
[2018-04-20] MEDS ORDERED: COL100 PO (12:59)
[2018-04-20] MEDS ORDERED: ATI2I IV (12:59)
[2018-04-20] MEDS ORDERED: LAC30L PO (12:59)
[2018-04-20] MEDS ORDERED: ZOF4 PO (12:59)
[2018-04-20] MEDS ORDERED: TES100 PO (12:59)
[2018-04-20] MEDS ORDERED: L40I IV (12:59)
[2018-04-20] MEDS ORDERED: TYL325 PO (12:59)
[2018-04-20] MEDS ORDERED: HUMULIN R100 U/1 M1 SC (13:00)
[2018-04-20] MEDS ORDERED: SOL40I IV (13:00)
[2018-04-20] MEDS ORDERED: PEP20I IV (13:00)
[2018-04-20] MEDS ORDERED: PROS5 PO (13:00)
--- NOTE | 2018-04-20 13:08 | NUR ---
PATIENT RESTING IN BED PEACEFULLY WITH BOTH EYES CLOSED. PATIENT REMAINS ON 40LPM ON HIGH FLOW O2 75% FIO2. HOB ELEVATED. SAFETY ADN FALL PRECAUTIONS IN PLACE. IVF REMAINS INFUISNG WELL TO RIGHT HAND. CALL LIGHT WITHIN EASY REACH. WILL CONTINUE TO MONITOR.
[2018-04-20 14:17] VITALS: BP 136/85
--- NOTE | 2018-04-20 14:25 | NUR ---
Initial Nutrition Assessment Dx: PNA PMHx: Pulmonary fibrosis, Chronic hypoxemic respiratory failure, HTN PSHx: lower back sx (date unknown) Labs: (04/20) Na 144, K 3.8, BG 133H, BUN 52H, Cr 1.1, WBC 26.1H, H/H 14.6/43 Meds: Ativan, Cardizem, Catapres, Cephulac, Colace, Cozaar, D50%, Eliquis, Humulin, Lasix, Lipitor, Lopressor, Morphine, Pepcid, Proscar, NSIV, Solu-Medrol, Tylenol, Xopenex, Zithromax, Zofran, Rocephin Diet: [facility] PO Intake: (04/19) B: 95% L: 75% D: 100% (04/18) B/L/D: 100% Ht: 70" (178 cm) Wt: 210# (95.3 kg) BMI: 30.1 (Obese Class I) IBW: 166# %IBW: 126% UBW: 202-205# Age: 72 y/o elderly male Food Allergies: NKFA Skin: Intact Minesh: 19 Edema: None GI: Last BM x 1 (04/20) Per H&P, pt. admitted with SOB and non-productive coughing associated with worsening of breathing difficulty and no other symptoms. Required high flow O2 (15 L) d/t lowered saturation in the ED and was subsequently transferred to ICU to maintain respiratory support. Transferred upstairs to telemetry on 04/19/18 with medical improvement per provider progress notes. Pt. endorses excellent appetite and no GI distress reported associated with current diet order. States that he enjoys foods served at the facility and has no other preferences. Problem with: No c/o N/V/D/C Problems with: Chewing: N Swallowing: N Current appetite: Excellent Recent wt change: None %wt change: N/A Vitamin/Supplement use: Centrum MVI, Vit C, [place]-3, potassium Special diet at home: Regular, [facility] Physical activity: Unable d/t chronic illnesses Education: Pt. notified of [facility] diet and associated restrictions. Declined further diet education at this time. Estimated Nutritional Needs Based on ideal body weight 75.5 kg: Energy: 9859-1765 kcal/d (25-30 kcal/kg- geriatric maintenance) Protein: 76-90 g/d (1.0-1.2 g/kg)-geriatric maintenance and preservation of lean body mass Fluid: 1690-7699 ml/d (1 ml/kcal-fluid balance) or per doctor Nutrition Diagnosis 1. Increased nutrient needs r/t increased metabolic demands AEB pt. reports of frequent SOB, use of accessory muscles during episodes of difficulty breathing 2/2 hx chronic hypoxemic respiratory failure. Intervention/RD recommendations 1. Continue CCHO diet as ordered and as tolerated. If PO intake <75% by following assessment, will consider adding ONS for supplementation. Monitor/Evaluate Goal: PO intake at least 75% of estimated needs Monitor: PO intake, Labs, GI function, diet tolerance F/U in 3-5 days as moderate risk (04/23-04/25)
--- NOTE | 2018-04-20 14:27 | NUR ---
Intervention/RD recommendations 1. Continue CCHO diet as ordered and as tolerated. If PO intake <75% by following assessment, will consider adding ONS for supplementation.
[2018-04-20 17:04] VITALS: BP 138/86
--- NOTE | 2018-04-20 19:27 | NUR ---
PATIENT RESTING IN BED PEACEFULLY WITH FAMILY AT THE BEDSIDE. REMAINS ON 40LPM HIGH FLOW O2 WITH 75% FIO2. PATIENT DENIES PAIN AT THIS TIME. PATIENT CARE ENDORSED TO BALE OPENER NURSE.
--- NOTE | 2018-04-20 20:26 | NUR ---
PT CURRENTLY RESTING IN BED, NO ACUTE DISTRESS. A/O X4. TELE #21 SHOWING AFIB, DENIES CHEST PAIN. PULSES PALPABLE IN ALL EXTREMITIES, NO EDEMA NOTED. LUNG SOUNDS DIMINISHED BILATERALLY, DENIES SOB, O2 VIA HIGH FLOW AT 40L. BOWEL SOUNDS ACTIVE, LAST BM 04/19/18. VOIDING WELL. GENERALIZED WEAKNESS. SKIN INTACT. DENIES PAIN AT THIS TIME. IV PATENT AND INTACT. BED IN LOWEST POSITION, SIDE RAILS UP X2, CALL LIGHT WITHIN REACH. WILL CONTINUE TO MONITOR.
[2018-04-20 21:20] VITALS: BP 148/84
--- NOTE | 2018-04-21 00:47 | NUR ---
PT CURRENTLY RESTING IN BED, NO ACUTE DISTRESS. WILL CONTINUE TO MONITOR.
[2018-04-21 05:46] VITALS: BP 132/83
--- NOTE | 2018-04-21 06:13 | NUR ---
PT SLEPT PERIODICALLY THROUGHOUT NIGHT, NO ACUTE DISTRESS. ALL NEEDS MET AND ATTENDED TO. NO SIGNIFICANT CHANGES. IV PATENT AND INTACT. BED IN LOWEST POSITION, SIDE RAILS UP X2, CALL LIGHT WITHIN REACH. WILL ENDORSE CARE TO ONCOMING NURSE.
--- NOTE | 2018-04-21 10:00 | NUR ---
PT ON BED, AWAKE, ALERT, AND ORIENTED. HAS NO COMPLAINT OF PAIN, SOB, OR DIZZINESS. RESPONDS WELL TO QUESTION AND ANSWER. DIMINISHED BERNARD BASES ON HIGHFLOW O2 40LPM WITH FIO2 75%. SYMMETRICAL CHEST EXPANSION AND UNLABORED. ACTIVE BOWEL SOUNDS NOTED. NON DISTENDED ABDOMEN. CHAIRFAST BOUND. SIDE RAILS UP, CALL LIGHT WITHIN REACH, WILL CONTINUE TO MONITOR
[2018-04-21 10:01] VITALS: BP 144/61
--- NOTE | 2018-04-21 12:30 | NUR ---
PT'S ACCUCHECK SHOWED 236. 6 UNITS OF REGULAR INSULIN GIVEN COVERAGE
[2018-04-21 12:57] VITALS: BP 135/89
[2018-04-21 13:57] VITALS: BP 135/89
[2018-04-21 17:25] VITALS: BP 131/83
--- NOTE | 2018-04-21 18:14 | NUR ---
PT'S ACCUCHECK SHOWED 201. 6 UNITS OF REGULAR INSULIN GIVEN COVERAGE. PT AND PT FAMILY INSTRUCTED TO CALL RN AND INFORM RN ONCE DINNER IS FINISHED. SO PATIENT MAYBE BE FITTED AND TESTED FOR BIPAP (FOR TRANSPORTATION)
--- NOTE | 2018-04-21 18:17 | NUR ---
[facility] CALLED AND CHECKED WITH [facility] REGARDING IF THEY ARE ABLE TO PROVIDE HIGHFLOW 02. [facility] WILL CALL BACK ONCE THEY TALK TO RT. WILL CONTINUE TO MONITOR
--- NOTE | 2018-04-21 18:31 | NUR ---
PT PLACED ON BIPAP 16/6 FI02 100%. SDATURATION 85%
--- NOTE | 2018-04-21 19:30 | NUR ---
PT RESTING IN BED. NO SIGN OF DISTRESS NOTED. PT ON BIPAP 16/6 100% FIO2. EQUAL CHEST RISE AND FALL. NO SIGN RESP DISTRESS. LUNGS DIMINSHED AT BASES. ON TELE 21, A FIB. DENIES CHEST PAIN OR PRESSURE. NO EDEMA. IV ON RH, INTACT AND PATENT. FAMILY AT BEDSIDE. WILL CONTINUE TO MONTIOR.
[2018-04-21 19:48] VITALS: BP 145/88
--- NOTE | 2018-04-21 19:50 | NUR ---
CALL [facility] AND GAVE REPORT TO ACCEPTING NURSE MCNEIL. ALL QUESTIONS AND CONCERNS ADDRESSED.
--- NOTE | 2018-04-21 20:10 | NUR ---
REPORT GIVEN TO CHARLA ZHENG. CONFIRMED PT RESPIRATION RATE AND BIPAP SETTING.
--- NOTE | 2018-04-21 20:30 | NUR ---
PT LEFT WITH TRANSPORTATION [facility]. PT TOLERATED WELL. NO SIGN OF DISTRESS WHEN LEAVING. TELE BOX WAS REMOVED AND PLACED IN TELE ROOM. FAMILY PRESENT.
== END 2018-04-21 20:28 | DRG 196 ==
LOC: ED 00:05 → IC 01:26 → DU 01:26 → IC 05:45 → DU 04-19 19:19
PROVIDERS: Emergency Medicine; Internal Medicine Pulmonary Disease; ADMIT Internal Medicine
DX: J84.10 Pulmonary fibrosis, unspecified (principal); J18.9 Pneumonia, unspecified organism; J96.21 Acute and chronic respiratory failure with hypoxia; E44.0 Moderate protein-calorie malnutrition; J44.1 Chronic obstructive pulmonary disease with (acute) exacerbation; N17.9 Acute kidney failure, unspecified; I48.0 Paroxysmal atrial fibrillation; I27.20 Pulmonary hypertension, unspecified; I11.0 Hypertensive heart disease with heart failure; I50.9 Heart failure, unspecified; Z99.81 Dependence on supplemental oxygen; Z68.33 Body mass index [BMI] 33.0-33.9, adult
CPT/HCPCS: 82962; 83880; 87804; J0456; J0696; J1160; J1650; J1940; J2060; J2270; J2920; J2930; J3490; J7030; J7050; J7620; J7644; Q0092